=== PATIENT | female | born 1985 | race Caucasian/White ===

== ENCOUNTER 2017-06-29 12:15 | Emergency (ER) | payer MEDICAID ==
[2017-06-29 12:30] VITALS: BP 104/66; PULSE 75; RESP 16; TEMP 98.3; O2SAT 98
--- NOTE | 2017-06-29 12:42 | C.PDOC ---
History Of Present Illness 32 year old female presents to ED with complaints of left eyelid swelling noticed this morning. She denies any injury, pain, visual changes, itching, foreign body sensation. She does not wear glasses or contacts. Time Seen by Provider: 06/29/17 12:30 Chief Complaint (Nursing): Eye Problem History Per: Patient History/Exam Limitations: no limitations Onset/Duration Of Symptoms: Hrs Current Symptoms Are (Timing): Still Present Injury To Eye?: No Wears Contact Lens?: No Associated Symptoms: denies: Decreased Vision, FB Sensation, Discharge From Eye Recent travel outside of the [place]: No Past Medical History Reviewed: Historical Data, Nursing Documentation, Vital Signs Vital Signs: Last Vital Signs Temp 98.3 F 06/29/17 12:20 Pulse 75 06/29/17 12:20 Resp 16 06/29/17 12:20 BP 104/66 06/29/17 12:20 Pulse Ox 98 06/29/17 13:50 - Medical History PMH: Kidney Stones Family History: States: Unknown Family Hx - Social History Hx Tobacco Use: Yes Hx Alcohol Use: Yes Hx Substance Use: No - Immunization History Hx Influenza Vaccination: No Review Of Systems Constitutional: Negative for: Fever, Chills Eyes: Positive for: Other (left eyelid swelling). Negative for: Vision Change, Redness Physical Exam - Physical Exam Appears: Non-toxic, No Acute Distress Skin: Warm, Dry Head: Atraumatic Eye(s): bilateral: PERRL, EOMI, right: Normal Inspection, left: Other (lower eyelid inflammation mild, no pointing, no nodules, no tenderness) Nose: Normal Oral Mucosa: Moist Neck: Normal ROM, Supple Chest: Symmetrical Extremity: Bilateral: Atraumatic, Normal ROM Neurological/Psych: Oriented x3, Normal Speech Gait: Steady ED Course And Treatment O2 Sat by Pulse Oximetry: 98 (room air ) Pulse Ox Interpretation: Normal Progress Note: Patient was given claritin and discharged home. Medical Decision Making Medical Decision Making: Patient with mild left eyelid swelling, no signs of hordeolum, chalazion, or cellulitis. No pain or visual changes. Claritin PO given. Recommend warm compress to area and follow up with optho if symptoms persist. Disposition Counseled Patient/Family Regarding: Diagnosis, Need For Followup, Rx Given - Disposition Referrals: Janes Sue MD [Staff Provider] - Disposition: HOME/ ROUTINE Disposition Time: 12:40 Condition: STABLE Additional Instructions: May apply warm compress to area, keep area clean, avoid rubbing or touching eye Take allergy medicine for any itching Instructions: Blepharitis (ED) Forms: [facility] (Frisian) - POA Present On Arrival: None - Clinical Impression Clinical Impression: Blepharitis of left eye - Scribe Statement The provider has reviewed the documentation as recorded by the Maria Luzibtiffani Crowell All medical record entries made by the Maria Luzibtiffani were at my direction and personally dictated by me. I have reviewed the chart and agree that the record accurately reflects my personal performance of the history, physical exam, medical decision making, and the department course for this patient. I have also personally directed, reviewed, and agree with the discharge instructions and disposition.
== END 2017-06-29 13:06 | disposition home or self-care (01) ==
LOC: C.ER 12:15
DX: H01.005 Unspecified blepharitis left lower eyelid (principal)